=== PATIENT | male | born 1970 | race Caucasian/White ===

== ENCOUNTER 2017-06-24 09:39 | Inpatient (IN) | payer OTHER ==
[~2017-06-24] VITALS: Ht 5871 cm; Wt 77.3 kg
[2017-06-24] MEDS ORDERED: LISI-600 PO (09:53)
[2017-06-24] MEDS ORDERED: ibuprofen tablet 400 MG TABLET PO ONE (09:55)
[2017-06-24 10:23] LABS: BASOPHILS # (AUTO) 0.1 X10'3 (0-0.2); BASOPHILS % (AUTO) 1.1 % (0-1); EOSINOPHILS # (AUTO) 0.2 X10'3 (0-0.9); EOSINOPHILS % (AUTO) 2.1 % (0-6); HEMATOCRIT 42.2 % (42.0-52.0); HEMOGLOBIN 14.4 g/dl (14.0-17.9); LYMPHOCYTES # (AUTO) 2.1 X10'3 (1.1-4.8); LYMPHOCYTES % (AUTO) 25.1 % (21-51); MEAN CORPUSCULAR HEMOGLOBIN 29.7 PG (27.0-31.0); MEAN CORPUSCULAR HGB CONC 34.2 % (33.0-36.5); MEAN CORPUSCULAR VOLUME 86.8 FL (78-98); MEAN PLATELET VOLUME 8.1 FL (7.4-10.4); MONOCYTES # (AUTO) 0.5 X10'3 (0-0.9); MONOCYTES % (AUTO) 6.2 % (2-12); NEUTROPHILS # (AUTO) 5.6 X10'3 (1.8-7.7); NEUTROPHILS % (AUTO) 65.5 % (42-75); PLATELET COUNT 237 X10'3 (140-440); RED BLOOD COUNT 4.86 X10'6 (4.70-6.10); RED CELL DISTRIBUTION WIDTH 17.2 % (11.5-14.5); WHITE BLOOD COUNT 8.6 X10'3 (4.5-11.0)
[2017-06-24 10:31] LABS: PROTHROMBIN TIME 10.3 SECONDS (9.0-12.0)
[2017-06-24 10:45] LABS: ALANINE AMINOTRANSFERASE 35 U/L (12-78); ALBUMIN 3.4 G/DL (3.4-5.0); ALBUMIN/GLOBULIN RATIO 0.9 (1.1-1.5); ALKALINE PHOSPHATASE 80 IU/L (46-116); ANION GAP 4 (8-16); ASPARTATE AMINO TRANSFERASE 25 U/L (10-37); BILIRUBIN,TOTAL 0.4 MG/DL (0.1-1.0); BLOOD UREA NITROGEN 20 MG/DL (7-18); BUN/CREATININE RATIO 20.8 (5.4-32.0); CALCIUM 8.8 MG/DL (8.5-10.1); CHLORIDE 105 MMOL/L (99-107); CREATININE 0.96 MG/DL (0.60-1.10); GLUCOSE 86 MG/DL (70-104); MAGNESIUM 2.4 MG/DL (1.5-2.4); POTASSIUM 4.6 MMOL/L (3.5-5.1); SODIUM 142 MMOL/L (135-145); TOTAL CARBON DIOXIDE 32.8 MMOL/L (24-32); eGFR 84 ML/MIN
[2017-06-24] MEDS ORDERED: nitroGLYCERIN 0.4mg/hour patch TD ONE (10:55)
[2017-06-24] MEDS ORDERED: enoxaparin 80mg/0.8ml syringe SUBCUT ONE (10:55)
[2017-06-24] MEDS ORDERED: enoxaparin 100mg/ml syringe SUBCUT ONE (10:55)
[2017-06-24] MEDS ORDERED: aspirin 81mg tab.chew PO ONE (10:55)
[2017-06-24 11:15] LABS: D-DIMER 0.56 MG/L FEU (0-0.50)
[2017-06-24] MEDS ORDERED: magnesium Cl slow-release 64mg tablet PO PRN (12:25)
[2017-06-24] MEDS ORDERED: magnesium hydroxide 30ml (MOM) UD suspension PO PRN (12:25)
[2017-06-24] MEDS ORDERED: ondansetron/PF 4mg/2ml inj IV PRN (12:25)
[2017-06-24] MEDS ORDERED: acetaminophen 325mg tablet PO PRN ×2 (12:25)
[2017-06-24] MEDS ORDERED: magnesium 4gm in 100ml NS 100 ML IV PRN (12:25)
[2017-06-24] MEDS ORDERED: potassium Cl 40MEQ/NS 500ml 500 ML IV PRN ×2 (12:25)
[2017-06-24] MEDS ORDERED: HYDROcodone/acetaminophen 5mg/325mg tablet PO PRN (12:25)
[2017-06-24] MEDS ORDERED: potassium Cl 20 mEq SR tablet PO PRN ×2 (12:25)
[2017-06-24] MEDS ORDERED: HYDROcodone/acetaminophen 10/325mg tab PO PRN (12:25)
[2017-06-24] MEDS ORDERED: magnesium 2GM in 50ml NS 50 ML IV PRN (12:25)
[2017-06-24] MEDS ORDERED: mag hydrox/Alum hydrox/simeth 30ml oral suspension PO PRN (12:25)
[2017-06-24] MEDS ORDERED: metoprolol tartrate 1mg/ml inj IV PRN (12:35)
[2017-06-24] MEDS ORDERED: nitroGLYCERIN 0.4mg SUBLingual tab SL PRN (12:35)
[2017-06-24] MEDS ORDERED: aminophylline 250mg/10ml inj. IV PRN (12:35)
[2017-06-24] MEDS ORDERED: regadenoson 0.4mg/5ml syringe IV ONE (12:35)
[2017-06-24] MEDS ORDERED: iohexol 350MG/ML 100ml bottle IV ONE (12:44)
[2017-06-24 15:00] VITALS: BP 169/99
[2017-06-24] MEDS: normal saline 1000ml 1,000 ML IV SCH (16:56)
[2017-06-24 19:00] VITALS: BP 136/104
[2017-06-24] MEDS: heparin, porcine 5000 units/ml vial SQ SCH (19:05)
[2017-06-24] MEDS ORDERED: temazepam 15mg capsule PO PRN (21:00)
[2017-06-24 23:00] VITALS: BP 137/86
[2017-06-25] VITALS (14 sets, daily range): BP systolic 143–164; BP diastolic 84–106
[2017-06-25] MEDS: normal saline 1000ml 1,000 ML IV SCH ×2 (01:45→14:36)
[2017-06-25 05:42] LABS: BASOPHILS % (AUTO) 0.3 % (0-1); EOSINOPHILS # (AUTO) 0.2 X10'3 (0-0.9); EOSINOPHILS % (AUTO) 1.6 % (0-6); HEMATOCRIT 39.5 % (42.0-52.0); HEMOGLOBIN 13.3 g/dl (14.0-17.9); LYMPHOCYTES # (AUTO) 1.7 X10'3 (1.1-4.8); LYMPHOCYTES % (AUTO) 15.2 % (21-51); MEAN CORPUSCULAR HEMOGLOBIN 29.8 PG (27.0-31.0); MEAN CORPUSCULAR HGB CONC 33.6 % (33.0-36.5); MEAN CORPUSCULAR VOLUME 88.8 FL (78-98); MEAN PLATELET VOLUME 8.4 FL (7.4-10.4); MONOCYTES # (AUTO) 0.5 X10'3 (0-0.9); MONOCYTES % (AUTO) 4.8 % (2-12); NEUTROPHILS # (AUTO) 8.8 X10'3 (1.8-7.7); NEUTROPHILS % (AUTO) 78.1 % (42-75); PLATELET COUNT 205 X10'3 (140-440); RED BLOOD COUNT 4.45 X10'6 (4.70-6.10); RED CELL DISTRIBUTION WIDTH 17.4 % (11.5-14.5); WHITE BLOOD COUNT 11.3 X10'3 (4.5-11.0)
[2017-06-25 06:04] LABS: ALANINE AMINOTRANSFERASE 35 U/L (12-78); ALBUMIN 3.1 G/DL (3.4-5.0); ALBUMIN/GLOBULIN RATIO 0.9 (1.1-1.5); ALKALINE PHOSPHATASE 71 IU/L (46-116); ANION GAP 7 (8-16); ASPARTATE AMINO TRANSFERASE 25 U/L (10-37); BILIRUBIN,TOTAL 0.3 MG/DL (0.1-1.0); BLOOD UREA NITROGEN 23 MG/DL (7-18); BUN/CREATININE RATIO 27.7 (5.4-32.0); CALCIUM 8.4 MG/DL (8.5-10.1); CHLORIDE 107 MMOL/L (99-107); CHOL/HDL RATIO 3.3 (0.00-4.99); CHOLESTEROL 183 MG/DL (0-200); CREATININE 0.83 MG/DL (0.60-1.10); GLUCOSE 92 MG/DL (70-104); HDL CHOLESTEROL 56 MG/DL (35-60); LDL CHOLESTEROL 103 MG/DL (50-100); MAGNESIUM 2.1 MG/DL (1.5-2.4); POTASSIUM 3.9 MMOL/L (3.5-5.1); SODIUM 141 MMOL/L (135-145); TOTAL CARBON DIOXIDE 26.9 MMOL/L (24-32); TOTAL PROTEIN 6.4 G/DL (6.4-8.2); TRIGLYCERIDES 43 MG/DL (20-135); eGFR > 90 ML/MIN
[2017-06-25] MEDS ORDERED: lisinopril 20mg tablet PO SCH (08:00)
[2017-06-25] MEDS ORDERED: K and/or MAG REPLACEMENT MC SCH (08:00)
[2017-06-25] MEDS: heparin, porcine 5000 units/ml vial SQ SCH (08:55)
[2017-06-25] MEDS ORDERED: regadenoson 0.4mg/5ml syringe IV ONE (09:33)
[2017-06-25] MEDS ORDERED: aminophylline inj. 10 ML IV ONE (09:33)
== END 2017-06-25 15:25 | disposition left against medical advice (07) | DRG 311 ==
LOC: EEVIPCON 09:40 → ER 09:40 → EEVIPCON 11:50 → ED HOLD 11:50 → EDBEDREQ 14:44 → PCU 3S 15:04
PROVIDERS: ADMIT Internal Medicine; ATTEND Internal Medicine
PROC: B3201ZZ Computerized Tomography (CT Scan) of Thoracic Aorta using Low Osmolar Contrast (ICD-10-PCS; principal; 2017-06-24)
PROC: 4A02XM4 Measurement of Cardiac Total Activity, External Approach (ICD-10-PCS; 2017-06-25)
PROC: 3E073KZ Introduction of Other Diagnostic Substance into Coronary Artery, Percutaneous Approach (ICD-10-PCS; 2017-06-25)
DX: I24.9 Acute ischemic heart disease, unspecified (principal); I11.0 Hypertensive heart disease with heart failure; I50.9 Heart failure, unspecified; F19.10 Other psychoactive substance abuse, uncomplicated; Z53.21 Procedure and treatment not carried out due to patient leaving prior to being seen by health care provider; F17.210 Nicotine dependence, cigarettes, uncomplicated; Z71.51 Drug abuse counseling and surveillance of drug abuser; Z71.6 Tobacco abuse counseling
CPT/HCPCS: 36415; 71045; 71275; 78451; 80053; 80061; 83735; 83880; 84484; 85025; 85379; 85610; 93005; 93017; 93306; 96372; 99285; A9500; J0280; J1644; J1650; J7030; Q9967

== ENCOUNTER 2017-08-31 12:15 | Inpatient (IN) | payer MEDICAID, OTHER ==
[~2017-08-31] VITALS: Ht 177.8 cm; Wt 73.2 kg
[~2017-08-31 12:15] MED LIST: LISI-600 PO
[2017-08-31] MEDS ORDERED: aspirin 81mg tab.chew PO ONE (12:30)
[2017-08-31 12:49] LABS: BASOPHILS % (AUTO) 0.3 % (0-1); EOSINOPHILS # (AUTO) 0.2 X10'3 (0-0.9); EOSINOPHILS % (AUTO) 2.3 % (0-6); HEMATOCRIT 42.1 % (42.0-52.0); HEMOGLOBIN 14.4 g/dl (14.0-17.9); LYMPHOCYTES # (AUTO) 2.3 X10'3 (1.1-4.8); LYMPHOCYTES % (AUTO) 23.7 % (21-51); MEAN CORPUSCULAR HEMOGLOBIN 30.6 PG (27.0-31.0); MEAN CORPUSCULAR HGB CONC 34.1 % (33.0-36.5); MEAN CORPUSCULAR VOLUME 89.6 FL (78-98); MEAN PLATELET VOLUME 7.5 FL (7.4-10.4); MONOCYTES # (AUTO) 0.6 X10'3 (0-0.9); MONOCYTES % (AUTO) 6.1 % (2-12); NEUTROPHILS # (AUTO) 6.5 X10'3 (1.8-7.7); NEUTROPHILS % (AUTO) 67.6 % (42-75); PLATELET COUNT 288 X10'3 (140-440); RED CELL DISTRIBUTION WIDTH 13.2 % (11.5-14.5); WHITE BLOOD COUNT 9.6 X10'3 (4.5-11.0)
[2017-08-31 13:04] LABS: D-DIMER 0.77 MG/L FEU (0-0.50)
[2017-08-31 13:06] LABS: ALANINE AMINOTRANSFERASE 36 U/L (12-78); ALBUMIN 3.4 G/DL (3.4-5.0); ALBUMIN/GLOBULIN RATIO 0.9 (1.1-1.5); ALKALINE PHOSPHATASE 81 IU/L (46-116); ANION GAP 7 (8-16); ASPARTATE AMINO TRANSFERASE 26 U/L (10-37); BILIRUBIN,TOTAL 0.2 MG/DL (0.1-1.0); BLOOD UREA NITROGEN 25 MG/DL (7-18); BUN/CREATININE RATIO 21.7 (5.4-32.0); CALCIUM 8.8 MG/DL (8.5-10.1); CHLORIDE 104 MMOL/L (99-107); CREATININE 1.15 MG/DL (0.60-1.10); GLUCOSE 94 MG/DL (70-104); SODIUM 139 MMOL/L (135-145); TOTAL CARBON DIOXIDE 28.2 MMOL/L (24-32); TOTAL PROTEIN 7.2 G/DL (6.4-8.2); eGFR 68 ML/MIN
[2017-08-31 13:13] LABS: MAGNESIUM 2.2 MG/DL (1.5-2.4)
[2017-08-31] MEDS ORDERED: heparin 10,000 units/1 ML INJ IV ONE (13:20)
[2017-08-31] MEDS ORDERED: nitroGLYCERIN 0.4mg SUBLingual tab SL PRN (13:20)
[2017-08-31 13:32] LABS: PARTIAL THROMBOPLASTIN TIME 25 SECONDS (22-32); PROTHROMBIN TIME 9.9 SECONDS (9.0-12.0)
[2017-08-31] MEDS ORDERED: ondansetron/PF 4mg/2ml inj IV PRN (16:05)
[2017-08-31] MEDS ORDERED: mag hydrox/Alum hydrox/simeth 30ml oral suspension PO PRN (16:05)
[2017-08-31] MEDS ORDERED: magnesium hydroxide 30ml (MOM) UD suspension PO PRN (16:05)
[2017-08-31] MEDS ORDERED: morphine 4 MG/ML inj SYRINge IV PRN ×2 (16:05)
[2017-08-31] MEDS ORDERED: acetaminophen 325mg tablet PO PRN (16:05)
[2017-08-31 17:15] VITALS: BP 156/89
[2017-08-31] MEDS ORDERED: CLIN150C2 PO (17:25)
[2017-08-31] MEDS ORDERED: SPIR25TA5 PO (17:25)
[2017-08-31] MEDS ORDERED: SULF-18 PO (17:25)
[2017-08-31] MEDS ORDERED: CARV12.5 PO (17:25)
[2017-08-31] MEDS ORDERED: ATOR20TA PO (17:25)
[2017-08-31] MEDS ORDERED: ACET-2119 PO (17:25)
[2017-08-31] MEDS: normal saline 1000ml 1,000 ML IV SCH (18:49)
[2017-08-31 19:00] VITALS: BP 133/74
[2017-08-31] MEDS ORDERED: spironolactone 25 MG tablet PO SCH (20:00)
[2017-08-31 20:23] LABS: URINE AMPHETAMINE SCREEN NEGATIVE (Neg); URINE BARBITUATE SCREEN NEGATIVE (Neg); URINE BENZODIAZEPINES SCREEN NEGATIVE (Neg); URINE CANNABINOID SCREEN NEGATIVE (Neg); URINE COCAINE SCREEN NEGATIVE (Neg); URINE METHADONE SCREEN NEGATIVE (Neg); URINE OPIATE SCREEN NEGATIVE (Neg); URINE PHENCYCLIDINE SCREEN NEGATIVE (Neg)
[2017-08-31] MEDS: carVEDilol 12.5mg tablet PO SCH (20:25)
[2017-08-31 23:00] VITALS: BP 145/95
[2017-09-01 01:03] LABS: BASOPHILS # (AUTO) 0.1 X10'3 (0-0.2); BASOPHILS % (AUTO) 0.7 % (0-1); EOSINOPHILS # (AUTO) 0.2 X10'3 (0-0.9); EOSINOPHILS % (AUTO) 1.8 % (0-6); HEMATOCRIT 42.8 % (42.0-52.0); HEMOGLOBIN 14.2 g/dl (14.0-17.9); LYMPHOCYTES # (AUTO) 3.2 X10'3 (1.1-4.8); LYMPHOCYTES % (AUTO) 36.2 % (21-51); MEAN CORPUSCULAR HEMOGLOBIN 30.2 PG (27.0-31.0); MEAN CORPUSCULAR HGB CONC 33.2 % (33.0-36.5); MEAN PLATELET VOLUME 8.1 FL (7.4-10.4); MONOCYTES # (AUTO) 0.5 X10'3 (0-0.9); MONOCYTES % (AUTO) 5.6 % (2-12); NEUTROPHILS # (AUTO) 4.8 X10'3 (1.8-7.7); NEUTROPHILS % (AUTO) 55.7 % (42-75); PLATELET COUNT 251 X10'3 (140-440); RED CELL DISTRIBUTION WIDTH 12.3 % (11.5-14.5); WHITE BLOOD COUNT 8.8 X10'3 (4.5-11.0)
[2017-09-01 01:15] LABS: ALBUMIN 3.2 G/DL (3.4-5.0); ANION GAP 5 (8-16); BLOOD UREA NITROGEN 23 MG/DL (7-18); BUN/CREATININE RATIO 21.5 (5.4-32.0); CALCIUM 8.7 MG/DL (8.5-10.1); CHLORIDE 106 MMOL/L (99-107); CREATININE 1.07 MG/DL (0.60-1.10); GLUCOSE 80 MG/DL (70-104); POTASSIUM 4.6 MMOL/L (3.5-5.1); SODIUM 142 MMOL/L (135-145); TOTAL CARBON DIOXIDE 31.3 MMOL/L (24-32); eGFR 74 ML/MIN
[2017-09-01] MEDS ORDERED: heparin 10,000 units/1 ML INJ IV PRN (02:00)
[2017-09-01 03:00] VITALS: BP 163/100
[2017-09-01 06:00] VITALS: BP 138/94
[2017-09-01] MEDS ORDERED: atorvastatin 20mg tablet PO SCH (08:00)
[2017-09-01] MEDS ORDERED: lisinopril 10 MG tablet PO SCH (08:00)
[2017-09-01] MEDS ORDERED: aspirin 81mg tablet.DR PO SCH (08:00)
[2017-09-01] MEDS: carVEDilol 12.5mg tablet PO SCH (08:45)
[2017-09-01] MEDS: normal saline 1000ml 1,000 ML IV SCH (08:51)
[2017-09-01 11:00] VITALS: BP 143/92
[2017-09-01] MEDS ORDERED: ASPI-1071 PO (13:10)
== END 2017-09-01 14:40 | disposition home or self-care (01) | DRG 190 ==
LOC: EEVIPCON 12:15 → ER 12:15 → EEVIPCON 16:04 → ED HOLD 16:04 → PCU 3S 17:25
PROVIDERS: ADMIT Family Medicine; ATTEND Family Medicine
DX: I21.4 Non-ST elevation (NSTEMI) myocardial infarction (principal); N17.0 Acute kidney failure with tubular necrosis; I11.0 Hypertensive heart disease with heart failure; I50.22 Chronic systolic (congestive) heart failure; F15.10 Other stimulant abuse, uncomplicated; F10.10 Alcohol abuse, uncomplicated; I42.7 Cardiomyopathy due to drug and external agent; E86.0 Dehydration; F12.90 Cannabis use, unspecified, uncomplicated; F17.210 Nicotine dependence, cigarettes, uncomplicated; I25.119 Atherosclerotic heart disease of native coronary artery with unspecified angina pectoris; Z82.3 Family history of stroke; Z82.49 Family history of ischemic heart disease and other diseases of the circulatory system; Z79.899 Other long term (current) drug therapy; Z71.51 Drug abuse counseling and surveillance of drug abuser; Z71.41 Alcohol abuse counseling and surveillance of alcoholic; Z71.6 Tobacco abuse counseling; Y92.89 Other specified places as the place of occurrence of the external cause
CPT/HCPCS: 36415; 71045; 80048; 80053; 80305; 83735; 83880; 84484; 85025; 85379; 85610; 85730; 87070; 93005; 96374; 96375; 99291; J1644; J7030

== ENCOUNTER 2018-10-05 16:21 | Emergency (ER) | payer OTHER, MEDICAID ==
[~2018-10-05] VITALS: Ht 180.3 cm; Wt 81.8 kg
[~2018-10-05 16:21] MED LIST changes: +ACET-2119 PO; +ASPI-1071 PO; +ATOR20TA PO; +CARV12.5 PO; +CLIN150C2 PO; +SPIR25TA5 PO; +SULF-18 PO
[2018-10-05 16:25] VITALS: BP 157/114
--- NOTE | 2018-10-05 16:40 | NUR ---
removed dressing and cleaned left head lac (approx 3.5 cm) with gauze and sterile water. offered pt cool cloth for eyes.
[2018-10-05] MEDS ORDERED: LIDOcaine 1% w/epiNEPHrine 1:200,000 30ml vial IM ONE (17:10)
== END 2018-10-05 18:24 | disposition home or self-care (01) ==
LOC: ER 16:21
DX: S01.01XA Laceration without foreign body of scalp, initial encounter (principal); I50.9 Heart failure, unspecified; I11.0 Hypertensive heart disease with heart failure; Z56.0 Unemployment, unspecified; Z79.82 Long term (current) use of aspirin; Z79.2 Long term (current) use of antibiotics; Z79.899 Other long term (current) drug therapy; W45.8XXA Other foreign body or object entering through skin, initial encounter; Y93.89 Activity, other specified; Y92.89 Other specified places as the place of occurrence of the external cause; Y99.8 Other external cause status
CPT/HCPCS: 12002; 70450; 99284